=== PATIENT | male | born 1990 | race Caucasian/White ===

== ENCOUNTER 2017-09-25 15:03 | Emergency (ER) | payer OTHER ==
[2017-09-25] MEDS ORDERED: GLUCAGON 1 MG KIT IV ONE (15:25)
--- NOTE | 2017-09-25 15:38 | ER Report ---
History and Physical Time Seen By MD: 15:09 Hx. of Stated Complaint: CHOKED ON A PIECE OF STEAK. HAD HYMLIC DONE, STEAK CAME UP. STILL FEELS LIKE THERE'S SOMETHING STUCK. HAPPENED APPROXIMATELY 12:30-1:00PM TODAY HPI/ROS CHIEF COMPLAINT: steak stuck in esophagus HISTORY OF PRESENT ILLNESS: Pt here for evaluation of piece of meat stuck in his esophagus. PT around 1pm was eating a piece of steak that got caught in his esophagus. Pts friend did the hemlick maneuver and was able to get a piece of steak up. PT still feels there is a piece of steak stuck in his esophagus. Pt is able to swallow his own saliva and is not drooling however he is unable to tolerate oral fluids. Attempted to take a sip of water in the ed and the fluid came back up. Pt is not coughing and is able to talk. Pt pointing to his sternal notch as location of food impaction. Pt states that he has had this happen before but he usually can get it up on his own. Ever had egd. REVIEW OF SYSTEMS: Constitutional: No fever, no chills. Eyes: No discharge. ENT:+ fells pressure at his sternal notch Cardiovascular: No chest pain, no palpitations. Respiratory: No cough, no shortness of breath. Gastrointestinal: No abdominal pain, no vomiting. Genitourinary: No hematuria. Musculoskeletal: No back pain. Skin: No rashes. Neurological: No headache. Allergies: Coded Allergies: No Known Drug Allergies (Unverified , 09/25/17) Home Meds No Active Prescriptions or Reported Meds Past Medical/Surgical History Pmxh: neg Pshx: wisdom teeth Reviewed Nurses Notes: Yes Hx Substance Use Disorder: No Hx Alcohol Use: No Constitutional Vital Sign - Last 24 Hours 09/25/17 09/25/17 09/25/17 09/25/17 15:06 15:06 15:18 15:30 Temp 97.9 Pulse 100 ??? Resp 12 B/P (MAP) 154/98 (116) 154/98 144/91 (108) Pulse Ox 93 O2 Delivery Room Air 09/25/17 09/25/17 09/25/17 09/25/17 15:33 15:48 16:00 16:03 Pulse ? 104 B/P (MAP) 154/90 (111) Pulse Ox 94 Physical Exam General Appearance: The patient is alert, has no immediate need for airway protection and no signs of toxicity. Eyes: Pupils equal and round no pallor or injection, EOMI ENT: no pharyngeal erythema or exudates, Mucous membranes are moist Respiratory: There are no retractions, lungs are clear to auscultation. Cardiovascular: Regular rate and rhythm. pulses are equal and symmetrical Gastrointestinal: Abdomen is soft and non tender, no masses, bowel sounds normal, no guarding, no rigidity or rebound Neurological: Cranial nerves II-XII grossly intact, no sensory or motor loss Skin: Warm and dry, no rashes. Musculoskeletal: Neck is supple non tender, no vertebral tenderness Extremities are nontender, non swollen and have full range of motion. DIFFERENTIAL DIAGNOSIS: After history and physical exam differential diagnosis was considered for esophageal fb Medical Decision Making ED Course/Re-evaluation Clinical Indication for ER IV: IV Access ED Course Attempted to give pt water but he vomited it up without steak. 09/25/2017 3:30:[address] Downing, covering surgeon, she does not perform EGDs and we do not have GI on staff. Will attempt glucagon and if can not get it up then will speak with Celena parks 09/25/2017 3:42:06 pm Spoke with patient. Still feels the meat is stuck however pt did receive the glucagon not too long ago. Pt also attempting carbonated soda. WIll give a ppi. Pt also is from [place] and prefers [facility] if needs to be transferred. 09/25/2017 3:51:30 pm Pt still feels food is stuck. Attempt to swallow the coke came back up. 09/25/2017 4:00:[address] Darby, GI specialist, at [facility]. He is happy to accept pt for his partner, Dr. Guido, who will be coming on at 5pm today. Asked for patient to be sent to the emergency room and have [facility] called for EGD on his arrival. 09/25/2017 4:14:33 pm Spoke with ed doctor who is aware pt is coming. PT is refusing ambulance and is wanting to go by private vehicle. pt is not driving but the friend who brought him here is driving. They understands and benefits. 09/25/2017 4:29:32 pm Pt transfered with IV in place. Decision to Disposition Date: Sep 25, 2017 Decision to Disposition Time: 16:10 Depart Departure Latest Vital Signs Vital Signs Date Time Temp Pulse Resp B/P (MAP) Pulse Ox O2 Delivery O2 Flow Rate FiO2 09/25/17 16:03 104 94 09/25/17 16:00 154/90 (111) 09/25/17 15:06 97.9 12 Room Air Impression: Primary Impression: Esophageal obstruction due to food impaction Condition: Condition Unchanged Disposition: XFER TO [facility] New Scripts No Active Prescriptions or Reported Meds Patient Instructions: Food Impaction (GEN) Additional Instructions: You are to go directly to [facility] in [place] emergency department. I did speak with both emergency room Physician as well as Dr. Darby the technology assistant who is expecting you. When you get there let them know you are a private vehicle transfer for an esophageal food impaction. It is possible that the medication we gave you in [place] may help you clear your impaction prior to your arrival. I would still continue to the facility so that they can evaluate your esophagus. MARIANNA RAO DO Sep 25, 2017 15:38
[2017-09-25] MEDS ORDERED: PANTOPRAZOLE SOD 40 MG IV VIAL IVP ONE (15:45)
[2017-09-25 16:00] VITALS: BP 154/90
== END 2017-09-25 16:31 | disposition short-term general hospital (02) ==
LOC: ER 15:16
DX: K22.2 Esophageal obstruction (principal)
CPT/HCPCS: 96374; 99285; C9113; J1610